=== PATIENT | male | born 1965 | race Caucasian/White ===

== ENCOUNTER 2016-07-01 07:00 | Emergency (ER) | payer OTHER ==
--- NOTE | 2016-07-01 08:15 | ED ORDER SUMMARY ---
..... Patient: LAZARO CURIEL OrderSheet [facility] VisitID: [id number] [address] [place] [address] 51y, M Registration Date/Time: 07/01/2016 ORDER SHEET Weight: 122.4 kg (stated) Allergies: PCN GENERAL ORDERS: MEDICATION ORDERS: Proparacaine Eye Drops (Solution 0.5 %) 2 drops (left eye) (07:28 07/01/2016 Maru Doan per protocol) (7:28 Maru Doan) IV FLUIDS: ORDER SHEET NOTES: [Electronically signed by Francis Chauhan Dr. (08:38 07/01/2016)] [Electronically signed by Christopher Chavez R.N. (08:39 07/01/2016)] [Electronically locked/signed by Christopher Chavez R.N. (08:39 07/01/2016)]
--- NOTE | 2016-07-01 08:15 | ED ORDER SUMMARY ---
..... Patient: LAZARO CURIEL OrderSheet [facility] VisitID: [id number] [address] [place] [address] 51y, M Registration Date/Time: 07/01/2016 ORDER SHEET Weight: 122.4 kg (stated) Allergies: PCN GENERAL ORDERS: MEDICATION ORDERS: Proparacaine Eye Drops (Solution 0.5 %) 2 drops (left eye) (07:28 07/01/2016 Maru Doan per protocol) (7:28 Maru Doan) IV FLUIDS: ORDER SHEET NOTES: [Electronically signed by Francis Chauhan Dr. (08:38 07/01/2016)] [Electronically signed by Christopher Chavez R.N. (08:39 07/01/2016)] [Electronically locked/signed by Christopher Chavez R.N. (08:39 07/01/2016)]
--- NOTE | 2016-07-01 08:15 | ED NURSING NOTES ---
Clinical Report - Nurses [facility] [address] [place] [address] 07/01/2016 7:02 [id number] Triage time 07:15. Acuity: LEVEL 4. Chief Complaint: PAIN and FOREIGN BODY TO LEFT EYE. 07:15 07/01/16. 07:15 07/01/16. Alert. No acute distress. VISUAL ACUITY: Visual acuity performed without corrective lenses: left eye 20/100; right eye 20/50; both eyes 20/30. --07:32 Christopher Chavez R.N. 07:16 07/01/16. BP: 147/70. HR: 71. RR: 18. O2 saturation: 100% on room air. Temp: 97.8 F (oral). Pain level now: 10/31. --07:32 Christopher Chavez R.N. Weight: 122.4 kg stated. Height/Length: 71 inches Per Patient. BMI: 37.7. --07:14 Christopher Chavez R.N. Medications MetFORMIN HCl Oral 1000mg, 2x a day. --07:18 Christopher Chavez R.N. Lantus Subcutaneous 100 units, every PM. --07:18 Christopher Chavez R.N. HumaLOG Subcutaneous 32 units, every PM. --07:18 Christopher Chavez R.N. ASA Oral 325 mg, daily. --07:19 Christopher Chavez R.N. Carvedilol Oral (Tablet 25 mg) 1 tablet, two times a day. --07:20 Christopher Chavez R.N. Lisinopril-Hydrochlorothiazide Oral (Tablet 20-25 mg) 1 tablet. --07:21 Christopher Chavez R.N. Lyrica Oral 100 mg, three times a day. --07:21 Christopher Chavez R.N. Plavix Oral 75 mg, daily. --07:22 Christopher Chavez R.N. Atorvastatin Calcium Oral 40 mg, daily. --07:22 Christopher Chavez R.N. Hydrocodone-Acetaminophen Oral (Tablet 10-325 mg), daily. --07:23 Christopher Chavez R.N. The following entry was struck and corrected by Christopher Chavez R.N., 07:22 (07/01/16) Reason for correction - other(correction). <<JEYSON ENTRY-- ASA Oral. --07:19 Christopher Chavez R.N. --END STRIKE>> The following entry was struck and corrected by Christopher Chavez R.N., 07:22 (07/01/16) Reason for correction - other(correction). <<JEYSON ENTRY-- MetFORMIN HCl Oral. --07:18 Christopher Chavez R.N. --END STRIKE>> The following entry was struck by Christopher Chavez R.N., 07:21 (07/01/16) Reason - other. <<[facility]-- Lisinopril Oral 20 mg, daily. --07:18 Christopher Chavez R.N. --END STRIKE>> The following entry was struck and corrected by Christopher Chavez R.N., 07:20 (07/01/16) Reason for correction - other(correction). <<[facility]-- Lisinopril Oral. --07:18 Christopher Chavez R.N. --END STRIKE>> The following entry was struck and corrected by Christopher Chavez R.N., 07:20 (07/01/16) Reason for correction - other(correction). <<[facility]-- HumaLOG Subcutaneous. --07:18 Christopher Chavez R.N. --END STRIKE>> The following entry was struck and corrected by Christopher Chavez R.N., 07:19 (07/01/16) Reason for correction - other(correction). <<JEYSON ENTRY-- Lantus Subcutaneous. --07:18 Christopher Chavez R.N. --END STRIKE>>. Medication/allergy information source: the patient. --07:32 Christopher Chavez R.N. Allergies PCN.(hives) --07:18 Christopher Chavez R.N. History Arrived by private vehicle. Historian: patient. Unaccompanied. Primary physician (DEVIKA FUENTES). 07:15 07/01/16. This started yesterday. Onset. (1600 after cutting grass). Treatment GEOSPATIAL EXTRACTOR ANALYSIS: None. PAST MEDICAL HX: Immunizations: up-to-date. SOCIAL HX: Current every day light tobacco smoker (cigarette)- less than 1/2 a pack per day. No alcohol use or drug use. No infectious disease exposure. ABUSE ASSESSMENT: No report of abuse. FALL RISK ASSESSMENT: Fall risk assessment completed. No fall risk identified. NUTRITIONAL RISK ASSESSMENT: The nutritional risk assessment revealed no deficiencies. FUNCTIONAL ASSESSMENT: Functional assessment: no impairments noted. LEARNING NEEDS ASSESSMENT: The learning needs assessment revealed no barriers. SKIN INTEGRITY ASSESSMENT: Skin integrity risk assessment completed. No skin integrity risk identified. --07:32 Christopher Chavez R.N. PROBLEMS: Neuropathy. Hypercholesterolemia. Hypertension. Diabetes Mellitus. --07:24 Christopher Chavez R.N. ADDITIONAL SURGERIES: Cardiac Catheterization. Cardiac Stents. --07:28 Christopher Chavez R.N. Assessment 07:15 07/01/16. --07:32 Christopher Chavez R.N. Interventions 07:15 07/01/16. 07:15 07/01/16. ID and allergy band on patient. --07:32 Christopher Chavez R.N. PHYSICAL ASSESSMENT 07:24 07/01/16. Ambulatory to room. GENERAL / NEURO / PSYCH: Alert. Appears in pain. CVS: Capillary refill less than 2 seconds. SKIN: Skin is warm and dry. --07:24 Christopher Chavez R.N. NURSING PROGRESS NOTES 07:23 07/01/2016 Proparacaine Eye Drops 2 drop given. Given in the left eye. Allergies verified and confirmed 5 rights. --07:28 Christopher Chavez R.N. 07:24 07/01/16. The plan of care for this patient has been created. Head of bed elevated. Call light placed in reach. Side rails up x 2. Bed placed in lowest position. Brakes of bed on. Care transferred and report given. --07:24 Christopher Chavez R.N. 07:42 07/01/16. ( Tech irrigating eye at this time). --07:42 Christopher Chavez R.N. Irrigated left eye with 500 mL normal saline. Patient tolerated procedure well and reported relief post-procedure. --08:00 IfeanyiSary banerjeea. DISPOSITION / DISCHARGE Departure time: 08:21. Condition at departure: improved. No learning barriers present. Discharge instructions provided and reviewed with the patient. Patient verbalized understanding. Written instructions provided in Turkmen. The patient was discharged home. He left the Emergency Department ambulatory and via private vehicle. Patient driving. --08:22 Bonnie Humphrey R.N. Locked/Released at 07/01/2016 8:39 by Christopher Chavez R.N.
--- NOTE | 2016-07-01 08:15 | ED CLINICAL REPORT ---
Clinical Report - Physicians/Mid Levels [facility] [address] [place] [address] 07/01/2016 7:02 [id number] Time Seen: 07:07; initial patient contact. Arrived- By private vehicle. Historian- patient. HISTORY OF PRESENT ILLNESS Chief Complaint: EYE IRRITATION and FOREIGN BODY. This started yesterday, involves the left eye, is characterized as moderate in severity and has been constant and is still present. The patient sustained injury. This occurred at home. He has had direct trauma. Mechanism- Tree branch. Not injured from contact lenses. Eye discomfort, redness, irritation and discharge. No eyelid swelling, photophobia, blurred vision, decreased vision or loss of vision. Patient denies injury to the head, face or neck. REVIEW OF SYSTEMS No fever, decreased vision, double vision or photophobia. He has had eye irritation. All systems otherwise negative, except as recorded above. PAST HISTORY Neuropathy. Hypercholesterolemia. Hypertension. Diabetes Mellitus. SURGERIES: Cardiac Catheterization. Cardiac Stents. Medications: Hydrocodone-Acetaminophen Oral (Tablet 10-325 mg), daily. Atorvastatin Calcium Oral 40 mg, daily. Plavix Oral 75 mg, daily. Lyrica Oral 100 mg, three times a day. Lisinopril-Hydrochlorothiazide Oral (Tablet 20-25 mg) 1 tablet. Carvedilol Oral (Tablet 25 mg) 1 tablet, two times a day. ASA Oral 325 mg, daily. HumaLOG Subcutaneous 32 units, every PM. Lantus Subcutaneous 100 units, every PM. MetFORMIN HCl Oral 1000mg, 2x a day. Allergies: PCN.(hives). SOCIAL HISTORY Current every day smoker. No alcohol use or drug use. ADDITIONAL NOTES The nursing notes have been reviewed. PHYSICAL EXAM Vital Signs: 07/01/2016 07:16 BP: 147/70. HR: 71. RR: 18. O2 saturation: 100%. Temp: 97.8 F. Pain level now: 8/10. Have been reviewed. Hypertensive. Heart rate normal. Respiratory rate normal. Temperature normal. Oxygen saturation normal. Appearance: Alert. Oriented X3. No acute distress. Eyes: Pupils equal, round and reactive to light. Accommodation normal. EOMs intact. Lt Eye: Single medium sized superficial circular shaped corneal abrasion located laterally. Single medium-sized circular shaped area of superficial fluorescein dye uptake on the cornea laterally. No conjunctival foreign body or corneal foreign body. Respiratory: No respiratory distress. Skin: No rash. Neuro: Oriented X 3. PROGRESS AND PROCEDURES Disposition: Discharged home in good condition. Condition: good. CLINICAL IMPRESSION Small corneal abrasion to the left eye. No foreign body or rust ring. INSTRUCTIONS Do not work today. Your Current Medications: CONTINUE TAKING THE FOLLOWING MEDICATIONS: ASA Oral : 325 mg daily. Atorvastatin Calcium Oral : 40 mg daily. Carvedilol Oral : Tablet 25 mg, 1 tablet two times a day. HumaLOG Subcutaneous : 32 units every PM. Hydrocodone-Acetaminophen Oral : Tablet 10-325 mg, daily. Lantus Subcutaneous : 100 units every PM. Lisinopril-Hydrochlorothiazide Oral : Tablet 20-25 mg, 1 tablet. Lyrica Oral : 100 mg three times a day. MetFORMIN HCl Oral : 1000mg 2x a day. Plavix Oral : 75 mg daily. Prescription Medications: Ciprofloxacin ophthalmic solution: instill 1 drop into the affected eye every 4 hours while awake for 7 days. Dispense two and one half (2.5) mL. No refill. Follow-up: Blood pressure screening was not performed during this visit because the patient has an active diagnosis of hypertension. (Electronically signed by Francis Chauhan Dr. 07/01/2016 8:38)
--- NOTE | 2016-07-01 08:15 | ED NURSING NOTES ---
Clinical Report - Nurses [facility] [address] [place] [address] 07/01/2016 7:02 [id number] TRI[facility] Triage time 07:15. Acuity: LEVEL 4. Chief Complaint: PAIN and FOREIGN BODY TO LEFT EYE. 07:15 07/01/16. 07:15 07/01/16. Alert. No acute distress. VISUAL ACUITY: Visual acuity performed without corrective lenses: left eye 20/100; right eye 20/50; both eyes 20/30. --07:32 Christopher Chavez R.N. 07:16 07/01/16. BP: 147/70. HR: 71. RR: 18. O2 saturation: 100% on room air. Temp: 97.8 F (oral). Pain level now: 10/31. --07:32 Christopher Chavez R.N. Weight: 122.4 kg stated. Height/Length: 71 inches Per Patient. BMI: 37.7. --07:14 Christopher Chavez R.N. Medications MetFORMIN HCl Oral 1000mg, 2x a day. --07:18 Christopher Chavez R.N. Lantus Subcutaneous 100 units, every PM. --07:18 Christopher Chavez R.N. HumaLOG Subcutaneous 32 units, every PM. --07:18 Christopher Chavez R.N. ASA Oral 325 mg, daily. --07:19 Christopher Chavez R.N. Carvedilol Oral (Tablet 25 mg) 1 tablet, two times a day. --07:20 Christopher Chavez R.N. Lisinopril-Hydrochlorothiazide Oral (Tablet 20-25 mg) 1 tablet. --07:21 Christopher Chavez R.N. Lyrica Oral 100 mg, three times a day. --07:21 Christopher Chavez R.N. Plavix Oral 75 mg, daily. --07:22 Christopher Chavez R.N. Atorvastatin Calcium Oral 40 mg, daily. --07:22 Christopher Chavez R.N. Hydrocodone-Acetaminophen Oral (Tablet 10-325 mg), daily. --07:23 Christopher Chavez R.N. The following entry was struck and corrected by Christopher Chavez R.N., 07:22 (07/01/16) Reason for correction - other(correction). <<JE[facility] ENTRY-- ASA Oral. --07:19 Christopher Chavez R.N. --END STRIKE>> The following entry was struck and corrected by Christopher Chavez R.N., 07:22 (07/01/16) Reason for correction - other(correction). <<[facility] ENTRY-- MetFORMIN HCl Oral. --07:18 Christopher Chavez R.N. --END STRIKE>> The following entry was struck by Christopher Chavez R.N., 07:21 (07/01/16) Reason - other. <<[facility] EN[facility]-- Lisinopril Oral 20 mg, daily. --07:18 Christopher Chavez R.N. --END STRIKE>> The following entry was struck and corrected by Christopher Chavez R.N., 07:20 (07/01/16) Reason for correction - other(correction). <<[facility] ENTRY-- Lisinopril Oral. --07:18 Christopher Chavez R.N. --END STRIKE>> The following entry was struck and corrected by Christopher Chavez R.N., 07:20 (07/01/16) Reason for correction - other(correction). <<[facility] ENTRY-- HumaLOG Subcutaneous. --07:18 Christopher Chavez R.N. --END STRIKE>> The following entry was struck and corrected by Christopher Chavez R.N., 07:19 (07/01/16) Reason for correction - other(correction). <<[facility] ENTRY-- Lantus Subcutaneous. --07:18 Christopher Chavez R.N. --END STRIKE>>. Medication/allergy information source: the patient. --07:32 Christopher Chavez R.N. Allergies PCN.(hives) --07:18 Christopher Chavez R.N. History Arrived by private vehicle. Historian: patient. Unaccompanied. Primary physician (DEVIKA FUENTES). 07:15 07/01/16. This started yesterday. Onset. (1600 after cutting grass). Treatment SENIOR FRONT END ENGINEER: None. PAST MEDICAL HX: Immunizations: up-to-date. SOCIAL HX: Current every day light tobacco smoker (cigarette)- less than 1/2 a pack per day. No alcohol use or drug use. No infectious disease exposure. ABUSE ASSESSMENT: No report of abuse. FALL RISK ASSESSMENT: Fall risk assessment completed. No fall risk identified. NUTRITIONAL RISK ASSESSMENT: The nutritional risk assessment revealed no deficiencies. FUNCTIONAL ASSESSMENT: Functional assessment: no impairments noted. LEARNING NEEDS ASSESSMENT: The learning needs assessment revealed no barriers. SKIN INTEGRITY ASSESSMENT: Skin integrity risk assessment completed. No skin integrity risk identified. --07:32 Christopher Chavez R.N. PROBLEMS: Neuropathy. Hypercholesterolemia. Hypertension. Diabetes Mellitus. --07:24 Christopher Chavez R.N. ADDITIONAL SURGERIES: Cardiac Catheterization. Cardiac Stents. --07:28 Christopher Chavez R.N. Assessment 07:15 07/01/16. --07:32 Christopher Chavez R.N. Interventions 07:15 07/01/16. 07:15 07/01/16. ID and allergy band on patient. --07:32 Christopher Chavez R.N. PHYSICAL ASSESSMENT 07:24 07/01/16. Ambulatory to room. GENERAL / NEURO / PSYCH: Alert. Appears in pain. CVS: Capillary refill less than 2 seconds. SKIN: Skin is warm and dry. --07:24 Christopher Chavez R.N. NURSING PROGRESS NOTES 07:23 07/01/2016 Proparacaine Eye Drops 2 drop given. Given in the left eye. Allergies verified and confirmed 5 rights. --07:28 Christopher Chavez R.N. 07:24 07/01/16. The plan of care for this patient has been created. Head of bed elevated. Call light placed in reach. Side rails up x 2. Bed placed in lowest position. Brakes of bed on. Care transferred and report given. --07:24 Christopher Chavez R.N. 07:42 07/01/16. ( Tech irrigating eye at this time). --07:42 Christopher Chavez R.N. Irrigated left eye with 500 mL normal saline. Patient tolerated procedure well and reported relief post-procedure. --08:00 IfeanyiSary banerjeea. DISPOSITION / DISCHARGE Departure time: 08:21. Condition at departure: improved. No learning barriers present. Discharge instructions provided and reviewed with the patient. Patient verbalized understanding. Written instructions provided in Chinese. The patient was discharged home. He left the Emergency Department ambulatory and via private vehicle. Patient driving. --08:22 Bonnie Humphrey R.N. Locked/Released at 07/01/2016 8:39 by Christopher Chavez R.N.
--- NOTE | 2016-07-01 08:40 | ED MAR SUMMARY ---
..... Medication Administration Record [facility] [address] [place] [address] Patient: LAZARO CURIEL Visit ID: [id number] 51y, M Weight: 122.4 kg Height/Length: 71 in BMI: 37.7 ALLERGIES: PCN Given 07:23 07/01/2016 Christopher Chavez R.N. Medication Administered: PROPARACAINE [EYE DROPS], Dose: 2 drop Eye Drops. Medication Ordered: Proparacaine Eye Drops (Solution 0.5 %) 2 drops (left eye).
--- NOTE | 2016-07-01 08:40 | ED DISCHARGE INSTRUCTIONS ---
Patient: LAZARO CURIEL General Instructions [facility] VisitID: [id number] [place] [address] 51y, M Registration Date/Time: 07/01/2016 Small corneal abrasion to the left eye. No foreign body or rust ring. INSTRUCTIONS Do not work today. Your Current Medications: CONTINUE TAKING THE FOLLOWING MEDICATIONS: ASA Oral : 325 mg daily. Atorvastatin Calcium Oral : 40 mg daily. Carvedilol Oral : Tablet 25 mg, 1 tablet two times a day. HumaLOG Subcutaneous : 32 units every PM. Hydrocodone-Acetaminophen Oral : Tablet 10-325 mg, daily. Lantus Subcutaneous : 100 units every PM. Lisinopril-Hydrochlorothiazide Oral : Tablet 20-25 mg, 1 tablet. Lyrica Oral : 100 mg three times a day. MetFORMIN HCl Oral : 1000mg 2x a day. Plavix Oral : 75 mg daily. Prescription Medications: Ciprofloxacin ophthalmic solution: instill 1 drop into the affected eye every 4 hours while awake for 7 days. Dispense two and one half (2.5) mL. No refill. Follow-up: Blood pressure screening was not performed during this visit because the patient has an active diagnosis of hypertension. ADDITIONAL INFORMATION Corneal Abrasion The cornea is the clear part in the front of the eye. This sensitive area is very painful when injured. There may be tearing and your vision may be blurry until healing occurs. You may be sensitive to light. This part of the body heals quickly. You can expect the pain to go away within 24-48 hours. If the abrasion is large or deep, your doctor may apply an eye patch, although this is not always done. An antibiotic ointment or eye drops may also be used to prevent infection. Numbing drops may be used to relieve the pain temporarily so that your eyes can be examined. However, these drops cannot be prescribed for home use because that would slow down the healing process. Also, if you cant feel your eye, there is a chance of accidentally injuring your eye further without knowing it. Home Care: A cold pack (ice in a plastic bag, wrapped in a towel) may be applied over the eye (or eyepatch) for 20 minutes at a time, to reduce pain. You may use acetaminophen (Tylenol) or ibuprofen (Motrin, Advil) to control pain, unless another pain medicine was prescribed. [NOTE: If you have chronic liver or kidney disease or ever had a stomach ulcer or GI bleeding, talk with your doctor before using these medicines.] Rest your eyes and do not read until symptoms are gone. If you use contact lenses, do not wear them until all symptoms are gone. If your vision is affected by the corneal abrasion or if an eyepatch was applied, DO NOT DRIVE a motor vehicle or operate machinery until all symptoms are gone. Otherwise, you would have trouble judging distances with only one eye. If your eyes are sensitive to light, try wearing sunglasses, or stay indoors, until symptoms go away. Follow Up as advised by our staff. Serious abrasions may be referred to an eyelet maker (chemical research engineer). If no patch was used but the pain continues for more than 48 hours, you should have another exam. Return to this facility or contact the referral doctor to arrange this. If your eye was patched and if you were asked to remove the patch yourself, see your doctor or return to this facility if your pain is still present after the patch is removed. If you were given a return appointment for patch removal and re-exam, do not miss this. It could be harmful if the patch remains in place longer than advised. Get Prompt Medical Attention if any of the following occur: Increasing eye pain or pain that does not improve after 24 hours Discharge from the eye Increasing redness of the eye or swelling of the eyelids Your vision gets worse Ciprofloxacin Hydrochloride Eye drops, solution What is this medicine? CIPROFLOXACIN (sip ciara FLOX a sin) is a quinolone antibiotic. It is used to treat bacterial eye infections. How should I use this medicine? This medicine is only for use in the eye. Follow the directions on the prescription label. Wash hands before and after use. Try not to touch the tip of the dropper to anything, even your eye or fingertips.Tilt your head back slightly and pull your lower eyelid down with your index finger to form a pouch. Squeeze the prescribed number of drops into the pouch. Close the eye gently to spread the drops. Your vision may blur for a few minutes. Use your doses at regular intervals. Do not use your medicine more often than directed. Finish the full course that is prescribed even if you think your condition is better. Do not skip doses or stop your medicine early. Talk to your director chemistry regarding the use of this medicine in children. Special care may be needed. What side effects may I notice from receiving this medicine? Side effects that you should report to your doctor or health farm or ranch animal caretaker as soon as possible: allergic reactions like skin rash, itching or hives, swelling of the face, lips, or tongue blurred vision that does not go away Side effects that usually do not require medical attention (report to your doctor or health farm or ranch animal caretaker if they continue or are bothersome): temporary blurred vision tearing or feeling of something in the eye What may interact with this medicine? Interactions are not expected. Do not use any other eye products without telling your doctor or health farm or ranch animal caretaker. What if I miss a dose? If you miss a dose, use it as soon as you can. If it is almost time for your next dose, use only that dose. Do not use double or extra doses. Where should I keep my medicine? Keep out of the reach of children. Store at room temperature between 2 and 25 degrees C (36 and 77 degrees F). Protect from light. Throw away any unused medicine after the expiration date. What should I tell my health care provider before I take this medicine? They need to know if you have any of these conditions: contact lens wearer an unusual or allergic reaction to ciprofloxacin, other antibiotics or medicines, foods, dyes, or preservatives or trying to get breast-feeding What should I watch for while using this medicine? Tell your doctor or health farm or ranch animal caretaker if your symptoms do not improve in 2 to 3 days or if they get worse. If your eyes are more sensitive to light, wear sunglasses. Do not wear contact lenses while you have any signs or symptoms of an eye infection. Ask your doctor or health farm or ranch animal caretaker when you can start wearing your contacts again. Stop using this medicine immediately if you notice signs of an allergic reaction. You have been given the following additional information: Corneal Abrasion Ciprofloxacin Hydrochloride Eye drops, solution Do not work today. (Electronically signed by Francis Chauhan Dr. 07/01/2016 8:38)
--- NOTE | 2016-07-01 08:40 | ED MAR SUMMARY ---
..... Medication Administration Record [facility] [address] [place] [address] Patient: LAZARO CURIEL Visit ID: [id number] 51y, M Weight: 122.4 kg Height/Length: 71 in BMI: 37.7 ALLERGIES: PCN Given 07:23 07/01/2016 Christopher Chavez R.N. Medication Administered: PROPARACAINE [EYE DROPS], Dose: 2 drop Eye Drops. Medication Ordered: Proparacaine Eye Drops (Solution 0.5 %) 2 drops (left eye).
--- NOTE | 2016-07-01 08:40 | ED MED RECONCILIATION SUMMARY ---
Patient: LAZARO CURIEL Medication Reconciliation Report [facility] VisitID: [id number] [address] [place] [address] 51y, M Registration Date/Time: 07/01/2016 Weight: 122.4 kg Height/Length: 71 in. BMI: 37.7 ALLERGIES: PCN The patient's Home Medications are listed below: CONTINUE TAKING THE FOLLOWING MEDICATIONS: ASA Oral 325 mg, daily Atorvastatin Calcium Oral 40 mg, daily Carvedilol Oral (25 mg) 1 tablet, two times a day HumaLOG Subcutaneous 32 units, every PM Hydrocodone-Acetaminophen Oral (10-325 mg), daily Lantus Subcutaneous 100 units, every PM Lisinopril-Hydrochlorothiazide Oral (20-25 mg) 1 tablet Lyrica Oral 100 mg, three times a day MetFORMIN HCl Oral 1000mg, 2x a day Plavix Oral 75 mg, daily The source(s) of the original Home Medication information: patient The following Medications were given to the patient in the Emergency Department: Proparacaine [Eye Drops] Eye Drops 2 drop, administered: 07/01/2016 7:23:00 AM The following Medications were prescribed to the patient: Ciprofloxacin ophthalmic solution: instill 1 drop into the affected eye every 4 hours while awake for 7 days. Dispense two and one half (2.5) mL. No refill. -- Francis Chauhan Dr.
--- NOTE | 2016-07-01 08:40 | ED DISCHARGE INSTRUCTIONS ---
Patient: LAZARO CURIEL General Instructions [facility] VisitID: [id number] [place] [address] 51y, M Registration Date/Time: 07/01/2016 Small corneal abrasion to the left eye. No foreign body or rust ring. INSTRUCTIONS Do not work today. Your Current Medications: CONTINUE TAKING THE FOLLOWING MEDICATIONS: ASA Oral : 325 mg daily. Atorvastatin Calcium Oral : 40 mg daily. Carvedilol Oral : Tablet 25 mg, 1 tablet two times a day. HumaLOG Subcutaneous : 32 units every PM. Hydrocodone-Acetaminophen Oral : Tablet 10-325 mg, daily. Lantus Subcutaneous : 100 units every PM. Lisinopril-Hydrochlorothiazide Oral : Tablet 20-25 mg, 1 tablet. Lyrica Oral : 100 mg three times a day. MetFORMIN HCl Oral : 1000mg 2x a day. Plavix Oral : 75 mg daily. Prescription Medications: Ciprofloxacin ophthalmic solution: instill 1 drop into the affected eye every 4 hours while awake for 7 days. Dispense two and one half (2.5) mL. No refill. Follow-up: Blood pressure screening was not performed during this visit because the patient has an active diagnosis of hypertension. ADDITIONAL INFORMATION Corneal Abrasion The cornea is the clear part in the front of the eye. This sensitive area is very painful when injured. There may be tearing and your vision may be blurry until healing occurs. You may be sensitive to light. This part of the body heals quickly. You can expect the pain to go away within 24-48 hours. If the abrasion is large or deep, your doctor may apply an eye patch, although this is not always done. An antibiotic ointment or eye drops may also be used to prevent infection. Numbing drops may be used to relieve the pain temporarily so that your eyes can be examined. However, these drops cannot be prescribed for home use because that would slow down the healing process. Also, if you cant feel your eye, there is a chance of accidentally injuring your eye further without knowing it. Home Care: A cold pack (ice in a plastic bag, wrapped in a towel) may be applied over the eye (or eyepatch) for 20 minutes at a time, to reduce pain. You may use acetaminophen (Tylenol) or ibuprofen (Motrin, Advil) to control pain, unless another pain medicine was prescribed. [NOTE: If you have chronic liver or kidney disease or ever had a stomach ulcer or GI bleeding, talk with your doctor before using these medicines.] Rest your eyes and do not read until symptoms are gone. If you use contact lenses, do not wear them until all symptoms are gone. If your vision is affected by the corneal abrasion or if an eyepatch was applied, DO NOT DRIVE a motor vehicle or operate machinery until all symptoms are gone. Otherwise, you would have trouble judging distances with only one eye. If your eyes are sensitive to light, try wearing sunglasses, or stay indoors, until symptoms go away. Follow Up as advised by our staff. Serious abrasions may be referred to an eye care professional (straight edger). If no patch was used but the pain continues for more than 48 hours, you should have another exam. Return to this facility or contact the referral doctor to arrange this. If your eye was patched and if you were asked to remove the patch yourself, see your doctor or return to this facility if your pain is still present after the patch is removed. If you were given a return appointment for patch removal and re-exam, do not miss this. It could be harmful if the patch remains in place longer than advised. Get Prompt Medical Attention if any of the following occur: Increasing eye pain or pain that does not improve after 24 hours Discharge from the eye Increasing redness of the eye or swelling of the eyelids Your vision gets worse Ciprofloxacin Hydrochloride Eye drops, solution What is this medicine? CIPROFLOXACIN (sip ciara FLOX a sin) is a quinolone antibiotic. It is used to treat bacterial eye infections. How should I use this medicine? This medicine is only for use in the eye. Follow the directions on the prescription label. Wash hands before and after use. Try not to touch the tip of the dropper to anything, even your eye or fingertips.Tilt your head back slightly and pull your lower eyelid down with your index finger to form a pouch. Squeeze the prescribed number of drops into the pouch. Close the eye gently to spread the drops. Your vision may blur for a few minutes. Use your doses at regular intervals. Do not use your medicine more often than directed. Finish the full course that is prescribed even if you think your condition is better. Do not skip doses or stop your medicine early. Talk to your manager local regarding the use of this medicine in children. Special care may be needed. What side effects may I notice from receiving this medicine? Side effects that you should report to your doctor or health child care attendant as soon as possible: allergic reactions like skin rash, itching or hives, swelling of the face, lips, or tongue blurred vision that does not go away Side effects that usually do not require medical attention (report to your doctor or health child care attendant if they continue or are bothersome): temporary blurred vision tearing or feeling of something in the eye What may interact with this medicine? Interactions are not expected. Do not use any other eye products without telling your doctor or health child care attendant. What if I miss a dose? If you miss a dose, use it as soon as you can. If it is almost time for your next dose, use only that dose. Do not use double or extra doses. Where should I keep my medicine? Keep out of the reach of children. Store at room temperature between 2 and 25 degrees C (36 and 77 degrees F). Protect from light. Throw away any unused medicine after the expiration date. What should I tell my health care provider before I take this medicine? They need to know if you have any of these conditions: contact lens wearer an unusual or allergic reaction to ciprofloxacin, other antibiotics or medicines, foods, dyes, or preservatives or trying to get breast-feeding What should I watch for while using this medicine? Tell your doctor or health child care attendant if your symptoms do not improve in 2 to 3 days or if they get worse. If your eyes are more sensitive to light, wear sunglasses. Do not wear contact lenses while you have any signs or symptoms of an eye infection. Ask your doctor or health child care attendant when you can start wearing your contacts again. Stop using this medicine immediately if you notice signs of an allergic reaction. You have been given the following additional information: Corneal Abrasion Ciprofloxacin Hydrochloride Eye drops, solution Do not work today. (Electronically signed by Francis Chauhan Dr. 07/01/2016 8:38)
--- NOTE | 2016-07-01 08:40 | ED MED RECONCILIATION SUMMARY ---
Patient: LAZARO CURIEL Medication Reconciliation Report [facility] VisitID: [id number] [address] [place] [address] 51y, M Registration Date/Time: 07/01/2016 Weight: 122.4 kg Height/Length: 71 in. BMI: 37.7 ALLERGIES: PCN The patient's Home Medications are listed below: CONTINUE TAKING THE FOLLOWING MEDICATIONS: ASA Oral 325 mg, daily Atorvastatin Calcium Oral 40 mg, daily Carvedilol Oral (25 mg) 1 tablet, two times a day HumaLOG Subcutaneous 32 units, every PM Hydrocodone-Acetaminophen Oral (10-325 mg), daily Lantus Subcutaneous 100 units, every PM Lisinopril-Hydrochlorothiazide Oral (20-25 mg) 1 tablet Lyrica Oral 100 mg, three times a day MetFORMIN HCl Oral 1000mg, 2x a day Plavix Oral 75 mg, daily The source(s) of the original Home Medication information: patient The following Medications were given to the patient in the Emergency Department: Proparacaine [Eye Drops] Eye Drops 2 drop, administered: 07/01/2016 7:23:00 AM The following Medications were prescribed to the patient: Ciprofloxacin ophthalmic solution: instill 1 drop into the affected eye every 4 hours while awake for 7 days. Dispense two and one half (2.5) mL. No refill. -- Francis Chauhan Dr.
== END 2016-07-01 08:21 | disposition home or self-care (01) ==
LOC: ED SRH 07:00
DX: S05.02XA Injury of conjunctiva and corneal abrasion without foreign body, left eye, initial encounter (principal); Z79.84 Long term (current) use of oral hypoglycemic drugs; W22.8XXA Striking against or struck by other objects, initial encounter; Y93.9 Activity, unspecified; Y92.009 Unspecified place in unspecified non-institutional (private) residence as the place of occurrence of the external cause; Y99.9 Unspecified external cause status; I10 Essential (primary) hypertension; E11.9 Type 2 diabetes mellitus without complications; E78.00 Pure hypercholesterolemia, unspecified; Z79.82 Long term (current) use of aspirin